=== PATIENT | male | born 2000 | race Caucasian/White ===

== ENCOUNTER → 2018-01-24 15:31 | Emergency (ER) | payer OTHER ==
[~2018-01-24 15:31] MED LIST: Sulfamethox/Trimethoprim DS 800/160* TAB PO ONE
--- NOTE | 2018-01-24 17:40 | ED ---
Skin Complaint - HPI Summary HPI Summary: 17 year old male presents with lesion to right ankle for the past week. He states that it was draining some pus and blood. States that it is improving. He states was some redness around her that has been resolving. He denies any history of MRSA. Is not diabetic. No fevers or chills. - History of Current Complaint Chief Complaint: EDRashSkinAbscess Time Seen by Provider: 01/24/18 17:30 Stated Complaint: LUMP ON RT LEG Pain Intensity: 2 - Allergy/Home Medications Allergies/Adverse Reactions: Allergies Allergy/AdvReac Type Severity Reaction Status Date / Time No Known Allergies Allergy Verified 01/24/18 15:38 PMH/Surg Hx/FS Hx/Imm Hx Endocrine/Hematology History: Denies: Hx Anticoagulant Therapy Respiratory History: Denies: Hx Asthma Infectious Disease History: No Infectious Disease History: Denies: Traveled Outside the [place] in Last 30 Days - Family History Known Family History: Negative: Diabetes - Social History Alcohol Use: Occasionally Substance Use Type: Reports: None Smoking Status (MU): Never Smoked Tobacco Review of Systems Negative: Fever Negative: Chest Pain Negative: Shortness Of Breath Positive: Rash All Other Systems Reviewed And Are Negative: Yes Physical Exam Triage Information Reviewed: Yes Vital Signs On Initial Exam: Initial Vitals Temp Pulse Resp BP Pulse Ox 98.1 F 90 18 154/84 98 01/24/18 15:35 01/24/18 15:35 01/24/18 15:35 01/24/18 15:35 01/24/18 15:35 Vital Signs Reviewed: Yes Appearance: Positive: Well-Appearing Skin: Positive: Warm, Dry, Other - 1cm by 1cm area of erythema with scab on right ankle with no flutance, no surrounding erythema Head/Face: Positive: Normal Head/Face Inspection Eyes: Positive: Normal, Conjunctiva Clear ENT: Positive: Normal ENT inspection, Pharynx normal, TMs normal Respiratory/Lung Sounds: Positive: Clear to Auscultation, Breath Sounds Present Cardiovascular: Positive: Normal, RRR Musculoskeletal: Positive: Normal, Strength/ROM Intact - right leg, Other - good pulses Neurological: Positive: Normal Psychiatric: Positive: Normal Diagnostics - Vital Signs Vital Signs Temp Pulse Resp BP Pulse Ox 01/24/18 15:35 98.1 F 90 18 154/84 98 - Laboratory Lab Statement: Any lab studies that have been ordered have been reviewed, and results considered in the medical decision making process. Course/Dx - Course Course Of Treatment: 17 year old male presents with lesion to right ankle for the past week. He states that it was draining some pus and blood. States that it is improving. He states was some redness around her that has been resolving. He denies any history of MRSA. Is not diabetic. No fevers or chills. On exam has healing abscess on the right leg. No surrounding erythema. No area of fluctuation felt. Will place on Bactrim. Told to gets worse to return. Patient understands and agrees with plan. - Differential Diagnoses - Skin Complaint Differential Diagnoses: Abscess, Cellulitis, Contact Dermatitis - Diagnoses Provider Diagnoses: Abscess of right leg Discharge - Sign-Out/Discharge Documenting (check all that apply): Patient Departure - Discharge Plan Condition: Good Disposition: HOME Prescriptions: Sulfamethox/Trimethoprim DS* [Bactrim DS 800/160 TAB*] 1 tab PO BID #13 tab Patient Education Materials: Abscess (ED) Referrals: No Primary Care Phys,NOPCP [Primary Care Provider] - Additional Instructions: Take antibiotic twice a day for 7 days, first dose given in ED Apply warm compresses to area Take ibuprofen or Tylenol for pain every 6 hours Follow up with primary within 3 days Return to ED if develop fever, area of redness spreads, or any new or worsening symptoms - Billing Disposition and Condition Condition: GOOD Disposition: Home
[2018-01-24 18:04] VITALS: BP 133/73
== END | disposition home or self-care (01) ==
LOC: ED 15:31
DX: L02.415 Cutaneous abscess of right lower limb (principal)
CPT/HCPCS: 99282; A9270-GY